=== PATIENT | female | born 1955 | race Caucasian/White ===

== ENCOUNTER 2022-06-16 16:51 | Emergency (ER) | payer MEDICAID ==
[~2022-06-16] VITALS: Ht 162.6 cm; Wt 79.0 kg
[2022-06-16 17:03] VITALS: BP 133/86
[2022-06-16] MEDS ORDERED: PREDNISONE 20MG TABLET PO STA (20:25)
[2022-06-16] MEDS ORDERED: IPRATROPIUM BROMIDE (0.02%) 0.5MG/2.5ML NEB HHN STA (20:25)
[2022-06-16] MEDS: ALBUTEROL (0.083%) 2.5MG/3ML NEB HHN SCH ×3 (21:30→22:30)
[2022-06-16] MEDS ORDERED: ALBU6.7H3 INH (22:42)
[2022-06-16] MEDS ORDERED: P50 MT (22:42)
[2022-06-16] MEDS ORDERED: ALBU2.5V13 NEB (23:06)
== END 2022-06-16 23:10 | disposition home or self-care (01) ==
LOC: ER 16:51
DX: R06.02 Shortness of breath (principal); R05.9 Cough, unspecified; Z90.710 Acquired absence of both cervix and uterus
CPT/HCPCS: 93005; 94640; 99284; J7512; Z7610

== ENCOUNTER 2022-07-27 07:42 | Emergency (ER) | payer MEDICAID ==
[~2022-07-27] VITALS: Ht 160 cm; Wt 74.0 kg
[~2022-07-27 07:42] MED LIST: ALBU2.5V13 NEB; ALBU6.7H3 INH; P50 MT
[2022-07-27 08:23] VITALS: BP 134/79
[2022-07-27] MEDS ORDERED: IPRATROPIUM/ALBUTEROL 0.5-3(2.5)MG/3ML NEB HHN ONE (10:00)
[2022-07-27] MEDS ORDERED: PREDNISONE 20MG TABLET PO NR (10:00)
[2022-07-27] MEDS ORDERED: ALBU6.7H3 INH (11:34)
[2022-07-27] MEDS ORDERED: P20 PO (11:34)
[2022-07-27] MEDS ORDERED: ALBU2.5V13 NEB (11:34)
== END 2022-07-27 11:52 | disposition home or self-care (01) ==
LOC: ER 07:56
DX: J20.9 Acute bronchitis, unspecified (principal); R03.0 Elevated blood-pressure reading, without diagnosis of hypertension; Z79.899 Other long term (current) drug therapy; Z79.51 Long term (current) use of inhaled steroids
CPT/HCPCS: 71045; 93005; 94640; 99283; J7512; Z7610